=== PATIENT | male | born 1990 | race Caucasian/White ===

== ENCOUNTER 2018-08-30 01:57 | Emergency (ER) | payer MEDICAID ==
[~2018-08-30] VITALS: Ht 180.3 cm; Wt 86.2 kg
[2018-08-30] MEDS ORDERED: ACETAMINOPHEN 500 MG TAB PO ONE (05:00)
[2018-08-30] MEDS ORDERED: IBUPROFEN 800 MG TAB PO ONE ×2 (05:00→15:00)
[2018-08-30 05:13] LABS: Basophils # (auto) 0.2 uL; Basophils % (auto) 3.1 % (0.0-2.0); Eosinophils # (auto) 0.1 uL; Eosinophils % (auto) 1.4 % (0.0-7.0); Hematocrit 44.7 % (41.0-53.0); Hemoglobin 14.6 g/dL (13.5-17.5); Mean Corpuscular Hemoglobin 31.9 pg (28.0-32.0); Mean Corpuscular Hgb Conc. 32.6 g/dL (32.0-36.0); Mean Corpuscular Volume 97.9 fL (80.0-100.0); Monocytes # (auto) 0.7 uL; Monocytes % (auto) 13.1 % (0.0-12.0); Neutrophils # (auto) 3.6 uL; Neutrophils % (auto) 64.4 % (37.0-80.0); Platelet Count (auto) 322 10^3/uL (140-450); Red Blood Cells 4.57 10^6/uL (4.5-5.90); White Blood Cell 5.7 10^3/uL (4.4-10.8)
[2018-08-30 05:37] LABS: Anion Gap 11 (5-15); Blood Alcohol < 3.0 mg/dL (0-5); Blood Urea Nitrogen 18 mg/dL (7-18); Calcium 8.7 mg/dL (8.5-10.1); Carbon Dioxide 24 mmol/L (21-32); Chloride 101 mmol/L (98-107); Glucose 73 mg/dL (74-106); Sodium 136 mmol/L (136-145)
[2018-08-30 05:39] LABS: Salicylate < 1.7 mg/dL (2.8-20.0)
[2018-08-30 05:43] LABS: Alanine Aminotransferase 23 U/L (16-61); Alkaline Phosphatase 90 U/L (45-117); Aspartate Aminotransferase 32 U/L (15-37); BUN/Creatinine Ratio 19.4; GFR African American 123 mL/min; GFR Non-African American 101 mL/min; Total Protein 7.6 g/dL (6.4-8.2)
[2018-08-30 05:54] LABS: Acetaminophen < 2.0 ug/mL (10-30)
[2018-08-30 08:03] LABS: Urine Bacteria NONE SEEN /hpf (None Seen); Urine Blood Negative /uL (Negative); Urine Specific Gravity 1.017 (1.001-1.035); Urine Sperm PRESENT /hpf (None Seen); Urine WBC <1 /hpf (0 - 3)
[2018-08-30 08:10] LABS: Alcohol, Urine < 3.0 mg/dL (0-5); Amphetamine Screen, Urine POSITIVE (NEGATIVE); Barbiturate Scree,Urine NEGATIVE (NEGATIVE); Benzodiazephine Screen, Urine NEGATIVE (NEGATIVE); Cannabinoid Screen, Urine POSITIVE (NEGATIVE); Cocaine Screen, Urine NEGATIVE (NEGATIVE); Opiate Scree,Urine NEGATIVE (NEGATIVE); Phencyclidine Screen, Urine NEGATIVE (NEGATIVE)
[2018-08-31] MEDS ORDERED: LORazepam 2MG/ML-1ML VIAL ONE (08:57)
[2018-08-31 09:08] VITALS: BP 128/67
[2018-08-31] MEDS ORDERED: LORazepam 2MG/ML-1ML VIAL IM ONE (09:15)
== END 2018-08-31 07:57 ==
LOC: EDBD 01:57 → ER 02:00
DX: B35.3 Tinea pedis (principal); R45.851 Suicidal ideations
CPT/HCPCS: 36415; 80053; 80307; 80320; 80329; 81001; 84484; 85025; 96372; 99284; J2060

== ENCOUNTER → 2019-08-12 | Emergency (ER) | payer SELFPAY ==
[~2019-08-12] VITALS: Ht 177.8 cm; Wt 81.6 kg
[~2019-08-12] MED LIST: SODIUM CHLORIDE 0.9% 1,000 ML IVB ONE
[2019-08-12 22:27] VITALS: BP 133/86
[2019-08-12 23:59] LABS: Basophils # (auto) 0.1 10 ^3/uL (0-0.2); Basophils % (auto) 1.1 % (0.0-2.0); Eosinophils # (auto) 0.1 10 ^3/uL (0-0.8); Eosinophils % (auto) 1.3 % (0.0-7.0); Hematocrit 35.1 % (41.0-53.0); Hemoglobin 11.8 g/dL (13.5-17.5); Lymphocytes # (auto) 1.8 10 ^3/uL (0.4-5.4); Lymphocytes % (auto) 28.4 % (10.0-50.0); Mean Corpuscular Hemoglobin 32.5 pg (28.0-32.0); Mean Corpuscular Hgb Conc. 33.7 g/dL (32.0-36.0); Mean Corpuscular Volume 96.5 fL (80.0-100.0); Monocytes # (auto) 0.3 10 ^3/uL (0-1.3); Monocytes % (auto) 4.4 % (0.0-12.0); Neutrophils # (auto) 4.1 10 ^3/uL (1.6-8.6); Neutrophils % (auto) 64.8 % (37.0-80.0); Platelet Count (auto) 396 10^3/uL (140-450); Red Blood Cells 3.64 10^6/uL (4.5-5.90); Red Cell Distribution Width 14.6 % (11.8-14.3); White Blood Cell 6.3 10^3/uL (4.4-10.8)
[2019-08-13 00:11] LABS: Albumin 3.2 g/dL (3.4-5.0); BUN/Creatinine Ratio 10.3; Calcium 7.6 mg/dL (8.5-10.1); Potassium 3.1 mmol/L (3.5-5.1)
[2019-08-13 00:17] LABS: Bilirubin, Total 0.2 mg/dL (0.2-1.0); Total Protein 6.9 g/dL (6.4-8.2)
== END | disposition home or self-care (01) ==
LOC: EDUNIT# 21:33 → EDBD 21:33 → ER 21:36
DX: F10.129 Alcohol abuse with intoxication, unspecified (principal); S61.210A Laceration without foreign body of right index finger without damage to nail, initial encounter; Y08.89XA Assault by other specified means, initial encounter; Y93.89 Activity, other specified; Y92.89 Other specified places as the place of occurrence of the external cause; Y99.8 Other external cause status; Y90.8 Blood alcohol level of 240 mg/100 ml or more
CPT/HCPCS: 36415; 80053; 80320; 85025; 93005; 99284; J7030

== ENCOUNTER 2019-08-17 20:27 | Emergency (ER) | payer MEDICAID ==
[~2019-08-17] VITALS: Ht 180.3 cm; Wt 74.8 kg
[2019-08-17 21:23] LABS: Basophils # (auto) 0 10 ^3/uL (0-0.2); Basophils % (auto) 0.7 % (0.0-2.0); Eosinophils # (auto) 0 10 ^3/uL (0-0.8); Eosinophils % (auto) 0.1 % (0.0-7.0); Hematocrit 33.1 % (41.0-53.0); Hemoglobin 10.9 g/dL (13.5-17.5); Lymphocytes # (auto) 0.9 10 ^3/uL (0.4-5.4); Lymphocytes % (auto) 13.3 % (10.0-50.0); Mean Corpuscular Hgb Conc. 32.8 g/dL (32.0-36.0); Mean Corpuscular Volume 97.3 fL (80.0-100.0); Monocytes # (auto) 0.3 10 ^3/uL (0-1.3); Monocytes % (auto) 4.2 % (0.0-12.0); Neutrophils # (auto) 5.4 10 ^3/uL (1.6-8.6); Neutrophils % (auto) 81.7 % (37.0-80.0); Platelet Count (auto) 359 10^3/uL (140-450); Red Cell Distribution Width 15.1 % (11.8-14.3); White Blood Cell 6.6 10^3/uL (4.4-10.8)
[2019-08-17 21:44] LABS: Albumin 3.6 g/dL (3.4-5.0); Anion Gap 8 (5-15); Blood Alcohol < 3.0 mg/dL (0-5); Blood Urea Nitrogen 12 mg/dL (7-18); Calcium 8.6 mg/dL (8.5-10.1); Carbon Dioxide 27 mmol/L (21-32); Chloride 106 mmol/L (98-107); Glucose 95 mg/dL (74-106); Sodium 141 mmol/L (136-145)
[2019-08-17 21:46] LABS: Acetaminophen < 2.0 ug/mL (10-30); Salicylate < 1.7 mg/dL (2.8-20.0)
[2019-08-17 21:47] LABS: Alanine Aminotransferase 21 U/L (16-61); Alkaline Phosphatase 98 U/L (45-117); Aspartate Aminotransferase 32 U/L (15-37); BUN/Creatinine Ratio 14.5; Bilirubin, Total 0.4 mg/dL (0.2-1.0); GFR African American 139 mL/min; GFR Non-African American 115 mL/min; Total Protein 7.4 g/dL (6.4-8.2)
[2019-08-17] MEDS: MULTIPLE VITAMIN INJ SCH (22:00)
[2019-08-17] MEDS: FOLIC ACID INJ SCH (22:00)
[2019-08-17] MEDS: [UNRECOGNIZED DRUG - OTHER] INJ SCH (22:00)
[2019-08-17] MEDS: MAGNESIUM SULF INJ SCH (22:00)
[2019-08-17] MEDS ORDERED: IBUPROFEN 800 MG TAB PO ONE (22:30)
[2019-08-17 22:32] LABS: Urine Bacteria NONE SEEN /hpf (None Seen); Urine Blood Negative /uL (Negative); Urine Mucus FEW (None Seen); Urine Specific Gravity 1.027 (1.001-1.035); Urine WBC <1 /hpf (0 - 3)
[2019-08-17 22:36] LABS: Amphetamine Screen, Urine POSITIVE (NEGATIVE); Barbiturate Scree,Urine NEGATIVE (NEGATIVE); Benzodiazephine Screen, Urine POSITIVE (NEGATIVE); Cannabinoid Screen, Urine POSITIVE (NEGATIVE); Cocaine Screen, Urine NEGATIVE (NEGATIVE); Opiate Scree,Urine NEGATIVE (NEGATIVE); Phencyclidine Screen, Urine NEGATIVE (NEGATIVE)
[2019-08-18] MEDS ORDERED: LORazepam 0.5 MG TAB PO ONE (07:00)
[2019-08-18] MEDS: MULTIPLE VITAMIN INJ SCH (12:00)
[2019-08-18] MEDS: MAGNESIUM SULF INJ SCH (12:00)
[2019-08-18] MEDS: [UNRECOGNIZED DRUG - OTHER] INJ SCH (12:00)
[2019-08-18] MEDS: FOLIC ACID INJ SCH (12:00)
[2019-08-18 14:29] VITALS: BP 135/81
== END 2019-08-18 14:46 | disposition short-term general hospital (02) ==
LOC: ER 20:27
DX: M79.672 Pain in left foot (principal); M79.671 Pain in right foot; R45.851 Suicidal ideations
CPT/HCPCS: 36415; 73620; 80053; 80307; 80320; 80329; 81001; 85025; 99285; J3475; J7030

== ENCOUNTER 2019-12-03 12:43 | Emergency (ER) | payer MEDICAID ==
[~2019-12-03] VITALS: Ht 177.8 cm; Wt 72.6 kg
[2019-12-03 12:58] VITALS: BP 122/84
[2019-12-03] MEDS ORDERED: cefTRIAXone SOD 1,000 MG VL IM ONE (15:00)
[2019-12-03] MEDS ORDERED: IBUPROFEN 800 MG TAB PO ONE (15:00)
== END 2019-12-03 15:33 | disposition home or self-care (01) ==
LOC: ER 12:43 → EDBD 12:43 → ER 15:33
DX: H66.91 Otitis media, unspecified, right ear (principal); F17.210 Nicotine dependence, cigarettes, uncomplicated
CPT/HCPCS: 96372; 99283; J0696

== ENCOUNTER 2019-12-03 23:39 | Emergency (ER) | payer MEDICAID ==
[~2019-12-03] VITALS: Ht 180.3 cm; Wt 72.6 kg
[2019-12-04 08:13] LABS: Basophils # (auto) 0 10 ^3/uL (0-0.2); Basophils % (auto) 0.2 % (0.0-2.0); Eosinophils # (auto) 0 10 ^3/uL (0-0.8); Eosinophils % (auto) 0.1 % (0.0-7.0); Hematocrit 39.2 % (41.0-53.0); Hemoglobin 13.2 g/dL (13.5-17.5); Lymphocytes % (auto) 8.9 % (10.0-50.0); Mean Corpuscular Hemoglobin 29.8 pg (28.0-32.0); Mean Corpuscular Hgb Conc. 33.7 g/dL (32.0-36.0); Mean Corpuscular Volume 88.4 fL (80.0-100.0); Monocytes % (auto) 8.9 % (0.0-12.0); Neutrophils % (auto) 81.9 % (37.0-80.0); Platelet Count (auto) 294 10^3/uL (140-450); Red Blood Cells 4.44 10^6/uL (4.5-5.90); White Blood Cell 10.9 10^3/uL (4.4-10.8)
[2019-12-04 08:29] LABS: Acetaminophen < 2.0 ug/mL (10-30); Salicylate < 1.7 mg/dL (2.8-20.0)
[2019-12-04 08:30] LABS: Chloride 106 mmol/L (98-107); Potassium 3.8 mmol/L (3.5-5.1); Sodium 136 mmol/L (136-145)
[2019-12-04 08:34] LABS: Alanine Aminotransferase 13 U/L (16-61); Albumin 3.8 g/dL (3.4-5.0); Anion Gap 6 (5-15); Aspartate Aminotransferase 55 U/L (15-37); BUN/Creatinine Ratio 8.4; Blood Alcohol < 3.0 mg/dL (0-5); Blood Urea Nitrogen 7 mg/dL (7-18); Carbon Dioxide 24 mmol/L (21-32); GFR African American 139 mL/min; GFR Non-African American 115 mL/min; Glucose 92 mg/dL (74-106)
[2019-12-04 08:37] LABS: Alkaline Phosphatase 87 U/L (45-117); Bilirubin, Total 0.4 mg/dL (0.2-1.0)
[2019-12-04] MEDS ORDERED: OLANZapine 5 MG TAB PO ONE ×2 (11:30→17:45)
[2019-12-04] MEDS ORDERED: LORazepam 0.5 MG TAB PO ONE (11:30)
[2019-12-04] MEDS ORDERED: IBUPROFEN 800 MG TAB PO ONE (17:45)
[2019-12-04 18:21] LABS: Urine WBC None Seen /hpf (0 - 3)
[2019-12-04 18:40] LABS: Urine Bacteria NONE SEEN /hpf (None Seen); Urine Blood Negative /uL (Negative); Urine Specific Gravity 1.002 (1.001-1.035)
[2019-12-04 18:48] LABS: Alcohol, Urine < 3.0 mg/dL (0-10); Amphetamine Screen, Urine POSITIVE (NEGATIVE); Barbiturate Scree,Urine NEGATIVE (NEGATIVE); Benzodiazephine Screen, Urine NEGATIVE (NEGATIVE); Cannabinoid Screen, Urine NEGATIVE (NEGATIVE); Cocaine Screen, Urine NEGATIVE (NEGATIVE); Phencyclidine Screen, Urine NEGATIVE (NEGATIVE)
[2019-12-04 18:55] LABS: Opiate Scree,Urine NEGATIVE (NEGATIVE)
[2019-12-05] MEDS ORDERED: ACETAMINOPHEN 500 MG TAB PO ONE (16:15)
[2019-12-06] MEDS ORDERED: LORazepam 0.5 MG TAB ONE (11:53)
[2019-12-06] MEDS ORDERED: ACETAMINOPHEN/CODEINE#3 (300/30mg) TAB PO ONE (21:00)
[2019-12-07] MEDS: OLANZapine 5 MG TAB PO SCH (10:22)
[2019-12-08 08:21] VITALS: BP 123/70
[2019-12-08] MEDS: OLANZapine 5 MG TAB PO SCH (10:04)
== END 2019-12-08 17:50 | disposition home or self-care (01) ==
LOC: ER 23:39
DX: M25.572 Pain in left ankle and joints of left foot (principal); H92.02 Otalgia, left ear; H61.21 Impacted cerumen, right ear; F31.9 Bipolar disorder, unspecified; I10 Essential (primary) hypertension; F17.210 Nicotine dependence, cigarettes, uncomplicated; Z20.828 Contact with and (suspected) exposure to other viral communicable diseases
CPT/HCPCS: 36415; 71046; 73600; 80053; 80307; 80320; 80329; 81001; 85025; 87426; 93005